=== PATIENT | male | born 1975 | race Hispanic/Latino ===

== ENCOUNTER 2018-06-14 17:44 | Emergency (ER) | payer SELFPAY ==
[2018-06-14 18:03] VITALS: BP 124/83; PULSE 92; RESP 18; TEMP 98.4; O2SAT 98
--- NOTE | 2018-06-14 18:44 | C.PDOC ---
History Of Present Illness 42 year old male presents to the ED for evaluation of a lump to his back that has been present for unknown period of time. Patient also complains of pain and decreased sensation to his left 3rd finger, as well as slight neck pain. He denies known trauma/injury to the areas, dizziness, or extremity numbness/weakness. Time Seen by Provider: 06/14/18 18:20 Chief Complaint (Nursing): Finger,Hand,&Wrist History Per: Patient History/Exam Limitations: no limitations Onset/Duration Of Symptoms: Days Current Symptoms Are (Timing): Still Present Additional History Per: Patient Past Medical History Reviewed: Historical Data, Nursing Documentation, Vital Signs Vital Signs: Last Vital Signs Temp 98.4 F 06/14/18 18:02 Pulse 92 H 06/14/18 18:02 Resp 18 06/14/18 18:02 BP 124/83 06/14/18 18:02 Pulse Ox 98 06/14/18 18:02 - Medical History PMH: Asthma, Bronchitis, Gastritis Surgical History: No Surg Hx Family History: States: Unknown Family Hx - Social History Hx Tobacco Use: No Hx Alcohol Use: Yes Hx Substance Use: No - Immunization History Hx Tetanus Toxoid Vaccination: No Hx Influenza Vaccination: No Hx Pneumococcal Vaccination: No Review Of Systems Musculoskeletal: Positive for: Neck Pain Skin: Positive for: Other (lump to back region ) Neurological: Positive for: Other (decreased sensation and pain to left 3rd finger ). Negative for: Weakness, Numbness Physical Exam - Physical Exam Appears: Non-toxic, No Acute Distress Skin: Normal Color, Warm, Dry Head: Atraumatic, Normacephalic Eye(s): bilateral: Normal Inspection Oral Mucosa: Moist Neck: Normal ROM, No Midline Cervical Tenderness, No Paracervical Tenderness, Supple Chest: Symmetrical, No Deformity Back: Other (cyst-like, 1cm region at mid-line of lower thoracic region with black punctum in center. no overlying erythema, fluctuance or warmth ) Extremity: Normal ROM (all fingers of left and right hands), Tenderness (minimal tenderness to dorsal surface proximal phalanx 3rd left finger, no swelling or erythema noted. skin intact. ), Capillary Refill (less than 2 seconds ), No Deformity, No Swelling Pulses: Left Radial: Normal, Right Radial: Normal Neurological/Psych: Oriented x3, Normal Speech, Normal Cognition, Normal Sensation (left 3rd finger ) ED Course And Treatment O2 Sat by Pulse Oximetry: 98 (on RA) Pulse Ox Interpretation: Normal Medical Decision Making Medical Decision Making: Progress: Motrin PO given. Disposition Counseled Patient/Family Regarding: Diagnosis, Need For Followup - Disposition Referrals: [facility] [Outside] Disposition: HOME/ ROUTINE Disposition Time: 18:49 Condition: GOOD Additional Instructions: [place] ibuprofeno 600 mg para el dolor cada 6 h si es necesario. Seguimiento en clnica mdica. Recomendar la referencia a Dermatologa. Volver a la jovan de emergencias para los sntomas peores. Compresas calientes para chocar en la espalda. Take ibuprofen 600 mg for pain every 6 hiours if neeed. Follow up in medical clinic. Recommend referral to Dermatolgy. REturn to ER for worse symptoms. Warm compresses to bump on back. Instructions: Epidermal Cyst (DC), Common Finger Injuries (DC) Forms: [employer] (Bur[place]an), Gen Discharge Inst [place]an Print Language: ROMANSH - Clinical Impression Clinical Impression: Epidermal inclusion cyst, Finger pain, left - PA / SERVER / Resident Statement MD/DO has reviewed & agrees with the documentation as recorded. - Scribe Statement The provider has reviewed the documentation as recorded by the Scribe (Karen Ga) All medical record entries made by the Scribe were at my direction and personally dictated by me. I have reviewed the chart and agree that the record accurately reflects my personal performance of the history, physical exam, medical decision making, and the department course for this patient. I have also personally directed, reviewed, and agree with the discharge instructions and disposition.
== END 2018-06-14 19:29 | disposition home or self-care (01) ==
LOC: C.ER 17:44
DX: L72.0 Epidermal cyst (principal); M79.645 Pain in left finger(s)